=== PATIENT | female | born 1980 | race African-American/Black ===

== ENCOUNTER 2022-03-26 08:47 | Observation (INO) | payer BC, SELFPAY ==
[2022-03-26 09:44] LABS: #Eosinphils 0.1 10x3/uL (0.0-0.5); #Monocytes 0.5 10x3/uL (0.0-1.1); #Neutrophils 3.1 10x3/uL (1.5-8.4); %Basophils 0.9 % (0.0-2.0); %Eosinophils 2.8 % (0.0-6.0); %Lymphocytes 18.4 % (18.0-47.0); %Monocytes 9.7 % (0.0-10.0); %Neutrophils 67.8 % (40.0-75.0); Hemoglobin 4.7 g/dL (12.0-15.5); Mean Corpuscular HGB CONC 25.4 g/dL (32.0-36.0); Mean Corpuscular Hemoglobin 14.3 pg (27.0-33.0); Mean Corpuscular Volume 56.4 fl (81.6-98.3); Mean Platelet Volume 9.3 fl (7.4-10.4); Platelet Count 459 10x3/uL (150-450); RBC Distribution Width 18.5 % (11.5-14.5); Red Blood Cell (RBC) Count 3.28 10x6/uL (3.90-5.03); White Blood Cell (WBC) Count 4.6 10x3/uL (3.5-10.5)
[2022-03-26 09:59] LABS: ALT (SGPT) 7 U/L (8-55); AST (SGOT) 13 U/L (5-34); Albumin 3.8 g/dL (3.5-5.0); Alkaline Phosphatase 48 U/L (40-110); Anion Gap 11 mmol/L (10-20); BUN (Urea Nitrogen) 10 mg/dL (7.0-18.7); Bilirubin, Total 0.4 mg/dL (0.2-1.2); Calc. Creatinine Clearance 0 mL/min (70-130); Calcium 8.9 mg/dL (7.8-10.44); Carbon Dioxide 23 mmol/L (22-29); Chloride 104 mmol/L (98-107); Estimated GFR 89; Globulin 3.9 g/dL (2.4-3.5); Glucose 95 mg/dL (70-105); Lipase 6 U/L (8-78); Potassium 3.4 mmol/L (3.5-5.1); Protein, Total 7.7 g/dL (6.0-8.3); Sodium 135 mmol/L (136-145)
[2022-03-26 10:13] LABS: Anisocytosis SLIGHT = 6-15 cells (100X) (0-5/hpf); Hypochromia MODERATE=16-30 cells (100X) (0-5/hpf); Macrocytosis SLIGHT = 6-15 cells (100X) (0-5/hpf); Microcytosis MODERATE=15-30 cells (100X) (0-5/hpf); Ovalocytes SLIGHT = 2-5 cells (100X) (0-1/hpf); Polychromasia SLIGHT = 2-3 cells (100X) (0-2/hpf)
[2022-03-26 10:15] LABS: Large Platelets SLIGHT
[2022-03-26 10:16] LABS: Platelet Morphology Comment Appears Increased
[2022-03-26 10:18] LABS: Reflex for Review?? YES
[2022-03-26 10:20] LABS: Bilirubin Neg (Negative); Blood, Urine 25 (Negative); Clarity Slightly Cloudy (Clear); Glucose, Urine (Dipstick) Normal (Negative); Ketone, Urine 5 mg/dL (Negative); Leukocyte 100 (Negative); Nitrite Negative (Negative); Protein, Urine (Dipstick) 30 mg/dl (Neg-Trace)
[2022-03-26 10:21] LABS: Pregnancy Test - Urine (BHCG) Negative (Negative); Pregu Control Background? CLEAR/WHITE (CLR/WHITE); Pregu Control Bar Appear? YES (CONTROL BAR)
[2022-03-26 10:28] LABS: Bacteria/HPF Rare-Few HPF (None Seen); RBC/HPF 0-3 HPF (0-3)
[2022-03-26 10:29] LABS: Mucous/LPF 1+ LPF (<2+)
[2022-03-26] MEDS ORDERED: Acetaminophen 325 MG TAB PO PRN (13:31)
[2022-03-26] MEDS ORDERED: Ondansetron PF 4 MG/2 ML Vial IVP PRN (13:31)
[2022-03-26] MEDS ORDERED: Ondansetron ODT 4 MG TAB PO PRN (13:31)
[2022-03-26] MEDS ORDERED: Pantoprazole 40 MG VIAL ONE (20:40)
[2022-03-26] MEDS ORDERED: Famotidine/PF 20 mg/2ml Vial ONE (20:43)
[2022-03-26] MEDS: Famotidine/PF 20 mg/2ml Vial SLOW IVP SCH (20:47)
[2022-03-26 22:00] VITALS: BMI 21.4
[2022-03-26 22:45] LABS: Hemoglobin 6.7 g/dL (12.0-15.5)
[2022-03-27 06:41] LABS: #Eosinphils 0.2 10x3/uL (0.0-0.5); #Monocytes 0.4 10x3/uL (0.0-1.1); #Neutrophils 1.8 10x3/uL (1.5-8.4); %Basophils 1.1 % (0.0-2.0); %Eosinophils 5.8 % (0.0-6.0); %Lymphocytes 33.2 % (18.0-47.0); %Monocytes 10.9 % (0.0-10.0); %Neutrophils 48.7 % (40.0-75.0); Hemoglobin 6.7 g/dL (12.0-15.5); Mean Corpuscular HGB CONC 28.2 g/dL (32.0-36.0); Mean Corpuscular Volume 63.8 fl (81.6-98.3); Mean Platelet Volume 9.1 fl (7.4-10.4); Platelet Count 345 10x3/uL (150-450); RBC Distribution Width 26.7 % (11.5-14.5); Red Blood Cell (RBC) Count 3.73 10x6/uL (3.90-5.03); White Blood Cell (WBC) Count 3.8 10x3/uL (3.5-10.5)
[2022-03-27 07:34] LABS: Anion Gap 9 mmol/L (10-20); BUN (Urea Nitrogen) 8 mg/dL (7.0-18.7); Calc. Creatinine Clearance 81 mL/min (70-130); Calcium 8.8 mg/dL (7.8-10.44); Carbon Dioxide 26 mmol/L (22-29); Chloride 106 mmol/L (98-107); Estimated GFR 96; Glucose 89 mg/dL (70-105); Potassium 3.9 mmol/L (3.5-5.1); Sodium 137 mmol/L (136-145)
[2022-03-27 07:58] LABS: Anisocytosis MODERATE=16-30 cells (100X) (0-5/hpf); Hypochromia MODERATE=16-30 cells (100X) (0-5/hpf); Macrocytosis SLIGHT = 6-15 cells (100X) (0-5/hpf); Microcytosis MODERATE=15-30 cells (100X) (0-5/hpf); Polychromasia SLIGHT = 2-3 cells (100X) (0-2/hpf)
[2022-03-27 08:00] LABS: Ovalocytes SLIGHT = 2-5 cells (100X) (0-1/hpf); Platelet Morphology Comment Appears Adequate
[2022-03-27] MEDS: Famotidine/PF 20 mg/2ml Vial SLOW IVP SCH (09:58)
[2022-03-27 12:22] VITALS: BP 93/50; TEMP 98.5
== END 2022-03-27 14:56 | disposition home or self-care (01) ==
LOC: CSHERS 08:47 → CSHTELE 09:54 → CSHERHOLD 15:02 → UNDOADMOB 15:02
PROVIDERS: ADMIT Hospitalist; ATTEND Hospitalist
DX: D62 Acute posthemorrhagic anemia (principal); N92.1 Excessive and frequent menstruation with irregular cycle; R55 Syncope and collapse; R10.9 Unspecified abdominal pain; Z79.899 Other long term (current) drug therapy; Z98.890 Other specified postprocedural states
CPT/HCPCS: 36415; 36430; 80048; 80053; 81003; 81015; 81025; 83690; 85025; 85060; 86850; 86900; 86901; 87086; 93005; 94760; 96374; 96376; 99284; C9113; G0378; P9016; S0028; U0003; U0005

== ENCOUNTER 2022-12-30 12:18 | Emergency (ER) | payer BC, SELFPAY ==
[2022-12-30 13:07] LABS: #Basophils 0.1 10x3/uL (0.0-0.2); #Eosinphils 0.2 10x3/uL (0.0-0.5); #Monocytes 0.6 10x3/uL (0.0-1.1); #Neutrophils 2.6 10x3/uL (1.5-8.4); %Basophils 1.3 % (0.0-2.0); %Eosinophils 3.9 % (0.0-6.0); %Lymphocytes 25.9 % (18.0-47.0); %Monocytes 12.3 % (0.0-10.0); %Neutrophils 56.4 % (40.0-75.0); Hematocrit 27.1 % (34.9-44.5); Hemoglobin 7.9 g/dL (12.0-15.5); Mean Corpuscular HGB CONC 29.2 g/dL (32.0-36.0); Mean Corpuscular Hemoglobin 19.6 pg (27.0-33.0); Mean Corpuscular Volume 67.2 fl (81.6-98.3); Mean Platelet Volume 9.5 fl (7.4-10.4); Platelet Count 505 10x3/uL (150-450); RBC Distribution Width 15.5 % (11.5-14.5); Red Blood Cell (RBC) Count 4.03 10x6/uL (3.90-5.03); White Blood Cell (WBC) Count 4.6 10x3/uL (3.5-10.5)
[2022-12-30 13:14] LABS: ALT (SGPT) 11 U/L (8-55); AST (SGOT) 16 U/L (5-34); Albumin 3.8 g/dL (3.5-5.0); Alkaline Phosphatase 53 U/L (40-110); Anion Gap 13 mmol/L (10-20); BUN (Urea Nitrogen) 10 mg/dL (7.0-18.7); Bilirubin, Total 0.4 mg/dL (0.2-1.2); Calc. Creatinine Clearance 0 mL/min (70-130); Calcium 8.8 mg/dL (7.8-10.44); Carbon Dioxide 22 mmol/L (22-29); Chloride 103 mmol/L (98-107); Estimated GFR 86; Globulin 3.8 g/dL (2.4-3.5); Glucose 84 mg/dL (70-105); Potassium 3.9 mmol/L (3.5-5.1); Protein, Total 7.6 g/dL (6.0-8.3); Sodium 134 mmol/L (136-145)
== END 2022-12-30 14:28 | disposition home or self-care (01) ==
LOC: CSHERS 12:18
DX: N92.0 Excessive and frequent menstruation with regular cycle (principal); D50.9 Iron deficiency anemia, unspecified; D25.9 Leiomyoma of uterus, unspecified
CPT/HCPCS: 36415; 80053; 85025; 99284